=== PATIENT | male | born 1970 | race Caucasian/White ===

== ENCOUNTER → 2017-12-16 | Emergency (ER) | payer OTHER ==
[~2017-12-16] VITALS: Ht 180.3 cm; Wt 99.8 kg
[~2017-12-16] MED LIST: ASPIRIN81 M1; HYZAAR 100-12.1 EACH; METFORMIN HCL500 MG
== END | disposition home or self-care (01) ==
LOC: ER 20:04
DX: K58.9 Irritable bowel syndrome, unspecified (principal)